=== PATIENT | male | born 1950 | race Caucasian/White ===

== ENCOUNTER 2020-06-06 06:05 | Day surgery (SDC) | payer OTHER | END 2020-06-06 13:00 | disposition home or self-care (01) | LOC: AMB-ENDOS 06:05 | PROVIDERS: ATTEND Colon & Rectal Surgery | DX: D12.4 Benign neoplasm of descending colon (principal); Z20.828 Contact with and (suspected) exposure to other viral communicable diseases; K64.1 Second degree hemorrhoids ==